=== PATIENT | male | born 2000 | race Caucasian/White ===

== ENCOUNTER 2020-01-11 09:13 | Outpatient (CLI) | payer BC ==
--- NOTE | 2020-01-11 09:46 | ULT ---
ULTRASOUND ABDOMEN: HISTORY: Abdominal pain FINDINGS: The liver demonstrates increased echogenicity due to fatty the infiltration with focal sparing but no definite focal mass or intrahepatic ductal dilatation. The spleen, gallbladder, kidneys and visualized portions of the aorta and IVC appear normal. The common duct measures 5mm in diameter. No free fluid is seen. IMPRESSION: 1. Fatty liver 2. No evidence of cholelithiasis
== END 2020-01-11 09:14 | disposition home or self-care (01) ==
LOC: BICULT 09:13
PROVIDERS: ATTEND Nurse Practitioner Family
DX: K80.50 Calculus of bile duct without cholangitis or cholecystitis without obstruction (principal); R10.9 Unspecified abdominal pain; K76.0 Fatty (change of) liver, not elsewhere classified
CPT/HCPCS: 93975